=== PATIENT | male | born 1940 | race African-American/Black ===

== ENCOUNTER 2019-01-09 00:31 | Emergency (ER) | payer OTHER, MEDICAID ==
[~2019-01-09] VITALS: Ht 170.2 cm; Wt 82.0 kg
[2019-01-09] MEDS ORDERED: MORPHINE SULFATE 4 MG/ML CPJ (NOT FOR IM USE) IV STA (01:09)
[2019-01-09] MEDS ORDERED: ONDANSETRON HCL 4MG/2ML INJ IV STA (01:09)
[2019-01-09] MEDS ORDERED: SODIUM CHLORIDE 0.9% 1,000 ML IV ONE (01:09)
[2019-01-09 01:28] LABS: HEMATOCRIT. 42.8 % (42.0-52.0); HEMOGLOBIN. 14.1 g/dL (14.0-18.0); MEAN CORPUSCULAR VOLUME 93.8 fL (80.0-94.0); MEAN PLATELET VOLUME 7.9 fl (7.4-10.4); PLATELET 157 x1000/uL (130-400); RED BLOOD CELL COUNT 4.56 mill/uL (4.7-6.1)
[2019-01-09 01:34] LABS: CHLORIDE 107 mEq/L (98-107)
[2019-01-09 01:40] LABS: PLATELET ESTIMATE NORMAL
[2019-01-09 03:34] LABS: CLARITY URINE CLEAR (CLEAR); COLOR URINE YELLOW (YELLOW); KETONES URINE NEGATIVE (NEGATIVE); LEUKOCYTE ESTERASE URINE NEGATIVE (NEGATIVE); NITRITE URINE NEGATIVE (NEGATIVE); OCCULT BLOOD URINE NEGATIVE (NEGATIVE); PROTEIN URINE 1+ (NEGATIVE); SPECIFIC GRAVITY URINE 1.014 (1.005-1.030); UROBILINOGEN URINE 0.2 E.U./dL (0.2-1.0)
[2019-01-09] MEDS ORDERED: CLONIDINE 0.2MG TABLET PO ONE (04:00)
[2019-01-09 05:49] VITALS: BP 157/82
== END 2019-01-09 05:53 | disposition home or self-care (01) ==
LOC: ER 00:31 → CANBEDREQ 06:08
DX: R10.30 Lower abdominal pain, unspecified (principal); I10 Essential (primary) hypertension
CPT/HCPCS: 36415; 71045; 74176; 80053; 81003; 83605; 83690; 85025; 93005; 96374; 96375; 99284; J2270; J2405; J7030